=== PATIENT | male | born 1995 | race Caucasian/White ===

== ENCOUNTER 2019-08-16 17:23 | Emergency (ER) | payer OTHER ==
[~2019-08-16] VITALS: Ht 172.7 cm; Wt 99.8 kg
== END 2019-08-16 18:56 | disposition home or self-care (01) ==
LOC: ED 17:23
DX: R21 Rash and other nonspecific skin eruption (principal); F17.200 Nicotine dependence, unspecified, uncomplicated
CPT/HCPCS: 99282

== ENCOUNTER 2024-10-25 10:04 | Emergency (ER) | payer OTHER ==
[~2024-10-25] VITALS: Ht 172.7 cm; Wt 116.1 kg
[2024-10-25] MEDS ORDERED: predniSONE 20 MG TAB PO ONE (10:30)
[2024-10-25 11:13] LABS: INFLUENZA B NAA NEGATIVE (NEGATIVE); RESPIRATORY SYNCYTIAL VIR NAA NEGATIVE (NEGATIVE)
[2024-10-25] MEDS ORDERED: PREDNISONE20 MG PO (11:51)
[2024-10-25 11:57] VITALS: BP 130/77
== END 2024-10-25 11:57 | disposition home or self-care (01) ==
LOC: ED 10:04
PROVIDERS: Emergency Medicine
DX: J98.8 Other specified respiratory disorders (principal); B33.8 Other specified viral diseases; K12.2 Cellulitis and abscess of mouth; F17.200 Nicotine dependence, unspecified, uncomplicated
CPT/HCPCS: 71046; 87502; 87651; 99283-25; J7512; U0002